=== PATIENT | female | born 1960 | race Caucasian/White ===

== ENCOUNTER 2017-03-27 09:10 | Day surgery (SDC) | payer OTHER ==
[~2017-03-27] VITALS: Ht 170.2 cm; Wt 80.3 kg
[~2017-03-27 09:10] MED LIST: ASPIR 8181 M1 PO; FISH OIL 1,0001 EAC7 PO; NON-ASPIRIN PA500 M1 PO; PRILOSEC20 MG PO; PRINZIDE 10-121 EACH PO; ROXICODONE15 MG PO; ZANAFLEX4 M1 PO
== END 2017-03-27 10:38 | disposition home or self-care (01) ==
LOC: PAIN 09:10 → SDC 09:45 → PAIN 10:38
DX: M16.11 Unilateral primary osteoarthritis, right hip (principal); I10 Essential (primary) hypertension; F17.210 Nicotine dependence, cigarettes, uncomplicated; F41.9 Anxiety disorder, unspecified; Z79.82 Long term (current) use of aspirin
CPT/HCPCS: J1030; J2250; J3010; S0020

== ENCOUNTER 2017-04-24 09:02 | Day surgery (SDC) | payer OTHER ==
[~2017-04-24] VITALS: Ht 170.2 cm; Wt 80.3 kg
== END 2017-04-24 10:55 | disposition home or self-care (01) ==
LOC: PAIN 09:02 → SDC 09:30 → PAIN 09:30
PROC: 3E0T33Z Introduction of Anti-inflammatory into Peripheral Nerves and Plexi, Percutaneous Approach (ICD-10-PCS; principal; 2017-04-24)
PROC: BR161ZZ Fluoroscopy of Lumbar Facet Joint(s) using Low Osmolar Contrast (ICD-10-PCS; principal; 2017-04-24)
PROC: 3E0T3BZ Introduction of Anesthetic Agent into Peripheral Nerves and Plexi, Percutaneous Approach (ICD-10-PCS; principal; 2017-04-24)
DX: M47.26 Other spondylosis with radiculopathy, lumbar region (principal); M54.5 Low back pain; G89.29 Other chronic pain; M16.11 Unilateral primary osteoarthritis, right hip; M96.1 Postlaminectomy syndrome, not elsewhere classified; E78.00 Pure hypercholesterolemia, unspecified; I10 Essential (primary) hypertension; F17.200 Nicotine dependence, unspecified, uncomplicated; E66.3 Overweight; Z68.27 Body mass index [BMI] 27.0-27.9, adult; K21.9 Gastro-esophageal reflux disease without esophagitis; Z79.82 Long term (current) use of aspirin; Z79.891 Long term (current) use of opiate analgesic
CPT/HCPCS: J1030; J2250; J3010; S0020

== ENCOUNTER 2017-07-10 14:02 | Day surgery (SDC) | payer OTHER ==
[~2017-07-10] VITALS: Ht 170.2 cm; Wt 79.4 kg
[~2017-07-10 14:02] MED LIST changes: +ALTOPREV20 MG PO; +KEFLEX500 MG PO; +L-LYSINE500 M1 PO; +PRAVACHOL80 MG PO; +PREDNISONE5 MG PO; +SYMBICORT60 INHALAT IH; +ZYRTEC10 M3 PO
== END 2017-07-10 15:50 | disposition home or self-care (01) ==
LOC: PAIN 14:02 → SDC 14:30 → PAIN 14:30
DX: M47.26 Other spondylosis with radiculopathy, lumbar region (principal); M54.5 Low back pain; G89.29 Other chronic pain; M96.1 Postlaminectomy syndrome, not elsewhere classified; I10 Essential (primary) hypertension; M16.11 Unilateral primary osteoarthritis, right hip; E78.00 Pure hypercholesterolemia, unspecified; F17.200 Nicotine dependence, unspecified, uncomplicated; Z79.82 Long term (current) use of aspirin
CPT/HCPCS: J1030; J2250; J3010; S0020

== ENCOUNTER 2017-09-01 09:37 | Day surgery (SDC) | payer OTHER ==
[~2017-09-01] VITALS: Ht 170.2 cm; Wt 79.4 kg
[~2017-09-01 09:37] MED LIST changes: +FLONASE16 G1 BOTH NARES
[2017-09-01] MEDS ORDERED: GABAPENTIN400 MG PO (09:48)
== END 2017-09-01 11:15 | disposition home or self-care (01) ==
LOC: PAIN 09:37
DX: M47.816 Spondylosis without myelopathy or radiculopathy, lumbar region (principal); M54.16 Radiculopathy, lumbar region; M16.11 Unilateral primary osteoarthritis, right hip; M96.1 Postlaminectomy syndrome, not elsewhere classified; I10 Essential (primary) hypertension; J44.9 Chronic obstructive pulmonary disease, unspecified; K21.9 Gastro-esophageal reflux disease without esophagitis; F17.200 Nicotine dependence, unspecified, uncomplicated; Z79.82 Long term (current) use of aspirin; Z79.891 Long term (current) use of opiate analgesic
CPT/HCPCS: J1030; S0020

== ENCOUNTER 2017-09-22 13:18 | Day surgery (SDC) | payer OTHER ==
[~2017-09-22] VITALS: Ht 170.2 cm; Wt 79.4 kg
[~2017-09-22 13:18] MED LIST changes: +GABAPENTIN400 MG PO
== END 2017-09-22 14:57 | disposition home or self-care (01) ==
LOC: PAIN 13:18
DX: M16.11 Unilateral primary osteoarthritis, right hip (principal); I10 Essential (primary) hypertension; J44.9 Chronic obstructive pulmonary disease, unspecified; K21.9 Gastro-esophageal reflux disease without esophagitis; Z79.82 Long term (current) use of aspirin; F17.200 Nicotine dependence, unspecified, uncomplicated
CPT/HCPCS: J1030; J2250; S0020